=== PATIENT | male | born 1960 | race African-American/Black ===

== ENCOUNTER 2017-02-18 02:43 | Emergency (ER) | payer MEDICAID ==
[~2017-02-18] VITALS: Ht 182.9 cm; Wt 79.0 kg
[2017-02-18] MEDS ORDERED: ACETAMINOPHEN 325MG TABLET PO ONE (04:15)
[2017-02-18 06:45] VITALS: BP 115/68
== END 2017-02-18 06:45 | disposition home or self-care (01) ==
LOC: ER 03:09
DX: S16.1XXA Strain of muscle, fascia and tendon at neck level, initial encounter (principal); R51 Headache; J45.909 Unspecified asthma, uncomplicated; V89.2XXA Person injured in unspecified motor-vehicle accident, traffic, initial encounter; Y93.89 Activity, other specified; Y92.89 Other specified places as the place of occurrence of the external cause; Y99.8 Other external cause status
CPT/HCPCS: 36415; 70450; 72125; 99285; G0482; Z7610